=== PATIENT | female | born 1945 | race Caucasian/White ===

== ENCOUNTER 2022-04-22 18:15 | Inpatient (IN) | payer OTHER, MEDICAID ==
[~2022-04-22] VITALS: Ht 154.9 cm; Wt 59.0 kg
[~2022-04-22 18:15] MED LIST: NONE REPORTED; OMEP40CA20 MT
[2022-04-22] MEDS ORDERED: ACETAMINOPHEN 325MG TABLET PO ONE (23:45)
[2022-04-23] MEDS ORDERED: SODIUM CHLORIDE 0.9% 1,000 ML IV ONE (00:30)
[2022-04-23 00:43] LABS: HEMATOCRIT. 26.3 % (36.0-48.0); HEMOGLOBIN. 8.9 g/dL (12.0-16.0); MEAN CORPUSCULAR HEMOGLOBIN 29.9 pg (28.0-32.0); MEAN CORPUSCULAR VOLUME 88.8 fL (81.0-99.0); MEAN PLATELET VOLUME 6.4 fl (7.4-10.4); PLATELET 355 x1000/uL (130-400); RED BLOOD CELL COUNT 2.96 mill/uL (4.2-5.4)
[2022-04-23 00:49] LABS: CHLORIDE 102 mEq/L (98-107)
[2022-04-23] MEDS ORDERED: DEXT 5%/0.9% NACL 1,000 ML IV ONE (01:15)
[2022-04-23 04:21] LABS: PLATELET ESTIMATE NORMAL
[2022-04-23 09:34] LABS: CLARITY URINE CLEAR (CLEAR); COLOR URINE DARK YELLOW (YELLOW); KETONES URINE TRACE (NEGATIVE); LEUKOCYTE ESTERASE URINE NEGATIVE (NEGATIVE); NITRITE URINE NEGATIVE (NEGATIVE); OCCULT BLOOD URINE NEGATIVE (NEGATIVE); PH URINE 5.5 (4.5-8.0); PROTEIN URINE TRACE (NEGATIVE); SPECIFIC GRAVITY URINE 1.027 (1.005-1.030)
[2022-04-23] MEDS: ENOXAPARIN 40MG/0.4ML SYR SUBCUT SCH (12:45)
[2022-04-23] MEDS ORDERED: ACETAMINOPHEN 325MG TABLET PO PRN (12:45)
[2022-04-23] MEDS ORDERED: DEXT 5%/0.45% NACL 1000ML 1,000 ML IV SCH (12:45)
[2022-04-23] MEDS ORDERED: ONDANSETRON HCL 4MG/2ML INJ IV PRN (12:45)
[2022-04-24 07:30] VITALS: BP 129/81
[2022-04-24 08:00] VITALS: BP 129/81
[2022-04-24] MEDS ORDERED: DEXTROSE 50% WATER 50ML SYRINGE IV PRN (08:00)
[2022-04-24 12:00] VITALS: BP 141/85
[2022-04-24] MEDS: BLOOD SUGAR DIAGNOSTIC STRIP TEST SCH ×3 (12:34→21:00)
[2022-04-24] MEDS: INSULIN LISPRO 100 UNITS/ML SUBCUT SCH ×3 (12:34→21:00)
[2022-04-24] MEDS: ENOXAPARIN 40MG/0.4ML SYR SUBCUT SCH (12:37)
[2022-04-24 20:00] VITALS: BP 143/81
[2022-04-24 22:02] LABS: CHLORIDE 104 mEq/L (98-107)
[2022-04-24 22:23] LABS: HEMATOCRIT. 28.4 % (36.0-48.0); HEMOGLOBIN. 9.4 g/dL (12.0-16.0); MEAN CORPUSCULAR HEMOGLOBIN 29.1 pg (28.0-32.0); MEAN CORPUSCULAR VOLUME 88.1 fL (81.0-99.0); MEAN PLATELET VOLUME 6.9 fl (7.4-10.4); PLATELET 346 x1000/uL (130-400); RED BLOOD CELL COUNT 3.22 mill/uL (4.2-5.4); RED CELL DISTRIBUTION WIDTH 21.3 % (11.6-14.6)
[2022-04-24 23:32] LABS: PLATELET ESTIMATE NORMAL
[2022-04-24 23:50] VITALS: BP 116/76
[2022-04-25 04:00] VITALS: BP 114/77
[2022-04-25] MEDS: INSULIN LISPRO 100 UNITS/ML SUBCUT SCH ×3 (07:40→21:00)
[2022-04-25] MEDS: BLOOD SUGAR DIAGNOSTIC STRIP TEST SCH ×3 (07:52→20:59)
[2022-04-25 08:00] VITALS: BP 132/75
[2022-04-25 12:00] VITALS: BP 128/86
[2022-04-25] MEDS ORDERED: ASPI-1497 MT (13:39)
[2022-04-25] MEDS ORDERED: LIP40 MT (13:39)
[2022-04-25 16:00] VITALS: BP 141/92
[2022-04-25 23:56] VITALS: BP 125/68
[2022-04-26] MEDS ORDERED: DEXT 5%/0.45% NACL 1000ML 1,000 ML IV SCH
[2022-04-26 03:39] VITALS: BP 107/76
[2022-04-26] MEDS: BLOOD SUGAR DIAGNOSTIC STRIP TEST SCH (07:10)
[2022-04-26 08:00] VITALS: BP 130/86
[2022-04-26 12:00] VITALS: BP 130/86
[2022-04-26 16:00] VITALS: BP 133/86
[2022-04-26 20:00] VITALS: BP_SYST 131; BP_SYST 150; BP_DIAS 81; BP_DIAS 91
[2022-04-27] VITALS: BP 130/87
[2022-04-27 04:00] VITALS: BP 124/78
[2022-04-27 08:00] VITALS: BP 141/76
[2022-04-27 10:18] VITALS: BP 141/76
[2022-04-27 12:00] VITALS: BP 146/87
[2022-04-27] MEDS: BLOOD SUGAR DIAGNOSTIC STRIP TEST SCH (12:14)
[2022-04-27] MEDS: INSULIN LISPRO 100 UNITS/ML SUBCUT SCH (12:14)
[2022-04-27] MEDS: ENOXAPARIN 40MG/0.4ML SYR SUBCUT SCH (12:15)
== END 2022-04-27 14:20 | DRG 640 ==
LOC: ER 18:15 → EDBEDREQ 04-23 02:23 → EDBEDREQSVC 04-23 02:23 → EDBEDREQTM 04-23 02:23 → MICUSO 04-23 03:36 → 8WST 04-24 10:07
PROVIDERS: ADMIT Internal Medicine; ATTEND Internal Medicine
DX: E16.2 Hypoglycemia, unspecified (principal); G93.41 Metabolic encephalopathy; G82.20 Paraplegia, unspecified; E78.00 Pure hypercholesterolemia, unspecified; I25.10 Atherosclerotic heart disease of native coronary artery without angina pectoris; Z20.822 Contact with and (suspected) exposure to COVID-19; I10 Essential (primary) hypertension; S09.90XA Unspecified injury of head, initial encounter; W18.39XA Other fall on same level, initial encounter; Y93.89 Activity, other specified; Y92.098 Other place in other non-institutional residence as the place of occurrence of the external cause; Y99.8 Other external cause status; I25.2 Old myocardial infarction; Z86.73 Personal history of transient ischemic attack (TIA), and cerebral infarction without residual deficits; Z99.3 Dependence on wheelchair
CPT/HCPCS: 36415; 71045; 76700; 80048; 80053; 81003; 82962; 83036; 83520; 84439; 84484; 85025; 87426; 93005; 93306; 93970; 99285; J1650